=== PATIENT | female | born 1980 | race Caucasian/White ===

== ENCOUNTER 2017-11-15 19:03 | Emergency (ER) | payer OTHER ==
[~2017-11-15] VITALS: Ht 152.4 cm; Wt 62.6 kg
[~2017-11-15 19:03] MED LIST: CIPROFLOXACIN250 M2 PO; CLONAZEPAM2 MG PO; DOLOPHINE10 MG PO; KLONOPIN 1MG TAB1 MG PO; METHADONE H5 MG/5 ML PO; MOTRIN 800MG T800 MG PO; PERCOCET 325 MG1 TA2 PO; PRENATAL1 TA2 PO; PYRIDIUM100 MG PO
[2017-11-15 20:59] VITALS: BP 141/82
--- NOTE | 2017-11-15 21:20 | ED GENERAL ADULT ---
History of Present Illness General Chief Complaint: Lower Extremity Injury Stated Complaint: "MY RT ELBOW WENT THROUGH GLASS DOOR" PER PT Source: patient Exam Limitations: no limitations Allergies Coded Allergies: NO KNOWN ALLERGIES (01/19/15) Reconcile Medications Clonazepam (Klonopin 1MG Tab) 1 MG TAB 1 TAB PO BID ANXIETY (Reported) Methadone Hydrochloride (Dolophine) 10 MG TAB 95 TAB PO DAILY Previous Heroin Use (Reported) OXYCODONE HCL/ACETAMINOPHEN (Percocet 5-325 MG Tablet) 325 MG/5 MG TAB 1 TAB PO Q4P PRN PAIN SCALE 7-8 PNV95/FERROUS FUMARATE/FA ( Formula Tablet) 1 TAB TAB 1 TAB PO DAILY (Reported) Yibuprofen (Motrin 800MG Tab) 800 MG TAB 800 MG PO Q6P PRN PAIN SCALE 4-6 Triage Note: PT FROM HOME C/O LEFT ELBOW INJURY SINCE 1529. PT WAS AT HOME AND WENT TO CLOSE A GLASS DOOR WITH HER ELBOW AND HER ELBOW WENT THROUGH THE GLASS. LAST TETANUS WAS AT AGE 24 Y/O. PT A&0X3. BLEEDING CONTROLLED PRIOR TO ARRIVAL WITH GAUZE. PT WAS CHECKED IN AT [facility] AND LEFT D/T THE WEIGHT. PTS VSS. Triage Nurses Notes Reviewed? yes : No Patient currently breastfeeds: No HPI: 37-year-old woman seen for evaluation of a elbow laceration. Patient reportedly was walking through her home this afternoon around 3 PM and was carrying several items in her hand when she tried to open an old door with a thin glass panel. Her left elbow pressed against the last pain and went through it. The area was initially cleaned and irrigated and wrapped in a towel. She initially went to the [facility] ED for evaluation but left due to extended weight; however it was dressed with sterile gauze at that site. Patient came to the [facility] ED for evaluation. She otherwise feels well and has no complaints (Annel SALINAS,Sebastien) Vital Signs & Intake/Output Vital Signs & Intake/Output Vital Signs Date Time Temp Pulse Resp B/P B/P Pulse O2 O2 Flow FiO2 Mean Ox Delivery Rate 11/15 2099 Room Air 11/15 2058 84 18 141/82 99 Room Air 11/15 1917 98.7 94 18 138/80 97 Room Air ED Intake and Output 11/16 0000 11/15 1200 Intake Total Output Total Balance Patient 62.596 kg Weight Weight Reported by Patient Measurement Method (Shandra SALINAS,Mark Ivy) Past History Travel History Traveled to [place] past 21 day No Medical History Any Pertinent Medical History? see below for history Neurological: NONE EENT: NONE Cardiovascular: NONE Respiratory: NONE Gastrointestinal: NONE Hepatic: NONE Renal: NONE Musculoskeletal: NONE Psychiatric: bipolar disease Endocrine: NONE Surgical History Surgical History: Psychosocial History What is your primary language Togolese Tobacco Use: Current Daily Use Daily Tobacco Use Amount/Type: => 5 Cigarettes daily ETOH Use: occasional use Illicit Drug Use: marijuana Family History Hx Contributory? No (Sebastien Up MD) Review of Systems Review of Systems Constitutional: Reports: see HPI. (Sebastien Up MD) Physical Exam Physical Exam General Appearance: well developed/nourished, no apparent distress, alert, awake Comments: General - well developed, young woman in no acute distress HEENT - NCAT, PERRL, EOMI, anicteric sclera Neck- Supple, no JVD/HJR, no bruits, trachea midline, thyroid normal Cardio - S1, S2 w/o murmurs/gallops/rubs; regular rate and rhythm Resp - Clear to auscultation bilaterally GI - Soft, nontender, nondistended, bowel sounds present Neuro - Awake and alert, CN II - XII grossly intact Extremities - No edema, pulses intact Left elbow-1.5 inch linear laceration to the mid left elbow with minor jagged edges, no obvious retained foreign material or debris, several 1-2 inch linear minor lacerations without dehiscence Core Measures ACS in differential dx? No CVA/TIA Diagnosis: No Sepsis Present: No Sepsis Focused Exam Completed? No (Sebastien Up MD) Progress Differential Diagnoses I considered the following diagnoses in my evaluation of the patient: Laceration Plan of Care: Orders Procedure Date/time Status URINE 11/15 1922 Complete Laboratory Tests 11/15/171926: Urine Test NEGATIVE Initial ED EKG: none Comments: Patient with acute trauma to her left elbow resulting in several superficial linear lacerations and one large laceration without retained material. X-ray obtained demonstrated no obvious retained foreign body. Wound was explored and prepped with Betadine. Aggressive sterile saline irrigation was utilized. Lidocaine 1% without epinephrine was used for local anesthetic. Four 4.0 nonabsorbable sutures were placed with adequate wound approximation. Topical antibiotic ointment applied and dressing applied. Tetanus shot administered. Patient is currently taking Keflex for a urinary tract infection. Patient requires no further antibiotics at this time. Patient is instructed to return to the ED and 10-14 days for a wound check and suture removal. She is to return to the ED should she develop signs of infection such as fever or chills. (Sebastien Up MD) Departure Departure Disposition: HOME OR SELF CARE Condition: Stable Clinical Impression Primary Impression: Laceration Referrals: Chiqui Goodrich (PCP/Family) Additional Instructions: Please keep the wound clean and dry and dressed for the first 24-48 hours. Should you develop local signs of infection or fever/chills please return to the ED. Please return to the ED and 10-14 days for a wound check/suture removal. Departure Forms: Customer Survey General Discharge Information (Sebastien Up MD) Resident Co-Sign Statement Statement: ED Attending supervision documentation- [] I saw and evaluated the patient. I have also reviewed all the pertinent lab results and diagnostic results. I agree with the findings and the plan of care as documented in the Resident's documentation. [X] I have reviewed the ED Record and agree with the Resident's documentation. [] Additions or exceptions (if any) to the Resident's note and plan are summarized below: [] (Shandra SALINAS,Mark Ivy) Procedures Laceration/Wound Repair Laceration/Wound Repair: Wound Location: upper extremity Wound's Depth, Shape: irregular, linear Wound Length (cm): 4 Wound Explored: clean, no foreign body removed, irrigated extensively Irrigated w/ Saline (ccs): 150 Betadine Prep? Yes Anesthesia: 1% lidocaine Volume Anesthetic (ccs): 5 Wound Debrided: minimal Wound Repaired With: sutures Suture Size/Type: 4:0 Number of Sutures: 4 Layer Closure? No Sterile Dressing Applied: Yes Tetanus Status: not up to date (Sebastien Up MD) Critical Care Note Critical Care Note Critical Care Time: non-applicable (Sebastien Up MD)
--- NOTE | 2017-11-15 21:27 | RADIOLOGY REPORT ---
EXAMINATION: XR ELBOW, LEFT CLINICAL INFORMATION: Elbow laceration. COMPARISON: None TECHNIQUE: Four views of the left elbow. FINDINGS: There is a bandage over the posterior elbow. There is no radiopaque foreign body. No osseous abnormality. Bone and joints are normal. IMPRESSION: No radiopaque foreign body. No osseous abnormality.
== END 2017-11-15 22:48 ==
LOC: ERH 19:03
DX: S51.012A Laceration without foreign body of left elbow, initial encounter (principal); W25.XXXA Contact with sharp glass, initial encounter; Y92.009 Unspecified place in unspecified non-institutional (private) residence as the place of occurrence of the external cause; Y93.89 Activity, other specified
CPT/HCPCS: 73080-LT; 81025; 90471; 90714